=== PATIENT | female | born 1985 | race Caucasian/White ===

== ENCOUNTER 2024-01-11 19:58 | Emergency (ER) | payer OTHER, SELFPAY ==
--- NOTE | ~2024-01-11 | CT_ITS ---
EXAMINATION: CT ABDOMEN AND PELVIS WITH CONTRAST CLINICAL INFORMATION: Right lower quadrant pain COMPARISON: None available. TECHNIQUE: Multidetector volumetric images were obtained from the superior aspect of the liver through the pubic symphysis following administration 85 mL of Omnipaque 350 intravenous contrast. Sagittal and coronal reformatted images were obtained on the technologist's workstation. Oral contrast: No This CT examination was performed using dose optimization techniques as appropriate, variously including the following: *Automated exposure control *Adjustment of mA and/or kV according to patient size (this includes techniques or standardized protocols for targeted exams where dose is matched to indication/reason for exam; i.e. extremities or head) *Use of iterative reconstruction technique DLP: 469 mGy-cm FINDINGS: LUNG BASES: The visualized lung bases are unremarkable. LIVER, GALLBLADDER, AND BILIARY TREE: The liver is normal in size, shape, and attenuation. A couple small hypoattenuating hepatic foci are suggestive of cysts. No biliary ductal dilatation is present. Gallbladder is contracted and not adequately evaluated. PANCREAS: Unremarkable. SPLEEN: Unremarkable. ADRENAL GLANDS: Unremarkable. KIDNEYS AND URETERS: Bilateral nephrograms are symmetric. No hydronephrosis or obstructing calculus identified. BLADDER: Minimally distended and not adequately evaluated. GASTROINTESTINAL TRACT: No evidence of bowel obstruction. Limited evaluation for wall thickening in the descending and sigmoid colon due to luminal collapse, though there is no surrounding stranding to strongly suggest a colitis.. The appendix is unremarkable. No free fluid or free air is seen. ABDOMINAL WALL: No significant hernia is appreciated. LYMPH NODES: Normal. VASCULAR: Mildly prominent bilateral pelvic veins. PELVIC VISCERA: Unremarkable. OSSEOUS STRUCTURES: Unremarkable. CT/CT abdomen pelvis w IV con IMPRESSION: 1. No acute findings identified in the abdomen/pelvis. Normal appendix. 2. Mildly prominent bilateral pelvic veins, which can be seen with pelvic congestion syndrome in the proper clinical setting.
--- NOTE | ~2024-01-11 | US_ITS ---
EXAMINATION: US PELVIS CLINICAL INFORMATION: Lower abdominal pain, miscarriage 2 weeks ago COMPARISON: None available. TECHNIQUE: Ultrasound of the pelvis is performed using both transabdominal and transvaginal transducers along with Doppler. Transvaginal imaging is performed due to inadequate visualization transabdominally. FINDINGS: Uterus: The uterus is anteverted and measures 9.4 x 4.1 x 5.3 cm. No intrauterine gestational sac or abnormal vascularity identified. The trilaminar endometrial thickness is 7 mm. The uterus is smooth in contour and has normal myometrial echogenicity. Prominent parametrial vessels. Adnexa: Both ovaries are visualized. There is normal color flow to the adnexa. There is no ovarian torsion. There is no pelvic ascites or fluid collection. Right ovary measures 2.9 x 1.7 x 2.0 cm. Left ovary measures 2.6 x 1.7 x 1.9 cm. US/US pelvic and transvaginal IMPRESSION: No intrauterine gestational sac or solid adnexal masses.
[2024-01-11 20:02] VITALS: BP 115/79; PULSE 86; RESP 18; TEMP 36.2; O2SAT 98; BMI 26.8
--- NOTE | 2024-01-11 20:04 | ED.ABDPAIN ---
HPI - Abdominal Pain General Chief Complaint: Abdominal Pain Stated Complaint: miscarriage 2wks/having a lot of pressure Time Seen by Provider: 01/11/24 20:58 Source: patient and family Mode of arrival: ambulatory Limitations: no limitations History of Present Illness ED Provider: ED ISIDRO narrative: 38 female had miscarriage 2 weeks at 6 weeks managed at [facility] 48 hours ago quant was 28. She notes she has not had bleeding for a few days but now has cramping in lower abdomen and pain in RLQ starting 3 days ago. She also has had headaches since the miscarriage that just won't go away. She has mild nausea but no vomiting or diarrhea. Given the worsening pain over the past 3 days her OBGYN referred her to the ED for US and repeat quant. No bleeding in days. She has no prior surgeries. She has not had ovarian cyst in the past. MD elicited complaint: abdominal pain Pertinent past history: other (miscarriage 2 weeks - medically managed) Onset (ago): day(s) (3) Pain Consistency: constant Location: RLQ Severity: moderate Quality: aching Radiation: none Migration to: no migration Exacerbating factors: movement Relieving factors: nothing Associated symptoms: nausea and other (headache) Related Data Allergies Allergy/AdvReac Type Severity Reaction Status Date / Time No Known Allergies Allergy Verified 01/11/24 20:07 Review of Systems Review of Systems Constitutional : No Fever, No Chills, No Fatigue ENT/Mouth : No sore throat, No Rhinorrhea Eyes: No Eye Pain, No Swelling, No Redness Cardiovascular : No Chest Pain, No SOB, No Dyspnea on Exertion Respiratory : No Cough, No Sputum Gastrointestinal : pos Nausea, No Vomiting, No Diarrhea, pos abdominal Pain Genitourinary : No Dysuria, No Urinary Frequency, No Hematuria, Musculoskeletal : No joint pain, No Myalgias, No Joint Swelling Skin : No Skin Lesions, No rash Neuro : No Weakness, No Numbness, No Dizziness, positive Headache Psych : No Anxiety/Panic, No Depression Heme/Lymph: No Bruising, No Bleeding,No Lymphadenopathy Endocrine : No Polyuria, No Polydipsia All other systems reviewed and are negative [facility] Past Medical History Attestation statement: The following information was validated with the patient. Source: old records reviewed Medical History Miscarriage Social History Social History Smoked in Last 30 Days: No Substance Use Type: Marijuana Advance Directives: No Advance Directives Information Provided: No Do you have a plan to hurt others: No Plan Patient : No Physical Exam ED Vital Signs: Vital Signs - 24 hr 01/11/24 20:02 01/11/24 20:29 01/12/24 00:00 Temperature 97.2 F 97.3 F Pulse Rate 86 82 72 Respiratory Rate 18 17 16 Blood Pressure 115/79 123/69 123/76 Pulse Oximetry 98 99 99 Oxygen Delivery Method Room Air Room Air Room Air BMI result Body Mass Index 26.8 Appearance: Alert. Oriented X3. No acute distress. Eyes: Pupils equal, round and reactive to light. ENT: Pharynx normal. Neck: Normal inspection. Neck supple. CVS: Normal heart rate and rhythm. Pulses normal. Respiratory: No respiratory distress. Breath sounds normal. Abdomen: Soft and moderate RLQ ttp Skin: Skin warm and dry. Normal skin color. Normal skin turgor. Extremities: No lower extremity edema. No calf ttp Neuro: Oriented X 3. No motor deficit. No sensory deficit. Course Course Course Narrative: This is a Rapid Medical Examination (RME) performed by Vandana Ridley PA-C in triage. Full HPI, ROS, assessment and treatment plan per primary provider in the Main ED. 38 yo A1 female here for eval of right lower abdominal pressure x few days, worsening over last 7-8 hours. no radiation of pain. admits to assoc MAGANA and fatigue. Patient reports miscarriage 2 weeks ago at 6 wks gestation. OBGYN through [facility] has been trending HCG. last hcg was 28 2 days ago. has had no follow up ultrasound to confirm completion. report vaginal bleeding ceased 3 days ago. now having abd pain, headaches, and fatigue. denies dysuria, hematuria, vaginal discharge. + generally well appearing. abd slightly distended, ttp of lower abd w/o rebound or guarding. Plan: labs, hcg, pelvic/ trans vaginal US, UA Medical Decision Making Medical Decision Making MDM Narrative: 38 yo female miscarriage 2 weeks ago quant downtrending to 28 48 hours ago she has stopped bleeding as of 3 days now with RLQ pain headaches and nausea x 3 days so OBGYN sent her in at this time no further bleeding, no bleeding on US probe will obtain basic labs, UA, her BP is normal she is not toxic and has no neurologic findings neck ROM is supple does not appear irritated SAH or CV thrombus less likely will get US and if negative will also work up with CT scan for appendicitis - quant flat at 30. Differential Diagnosis Differential Diagnoses: The differential diagnosis associated with the presentation includes cyst, retained POC less likely, appendicitis Admission/Observation Consideration of admission/observation: Escalation of care including admission/observation considered patient wants to leave refuses to stay for CT scan read alert and oriented x 3 feels better work up negative feels better Lab Data MDM Lab Attestation statement: I reviewed the patient's lab results. 01/11/24 20:26 01/11/24 20:26 Labs: Lab Results 01/11/24 01/11/24 Range/Units 20:26 20:38 WBC 7.8 (4.8-10.8) X10*3/uL RBC 4.55 (4.20-5.50) X10*6/uL Hgb 13.8 (12.0-16.0) g/dl Hct 40.5 (37.0-47.0) % MCV 89.0 (80.0-98.0) fL MCH 30.3 (27.0-33.0) pg MCHC 34.1 (31.0-35.0) g/dl RDW 12.4 (11.0-16.0) % Plt Count 371 (160-400) X10*3/uL MPV 8.7 L (9.4-12.3) fL Immature Gran % (Auto) 0.3 (0.0-0.4) % Neut % (Auto) 54.8 (45-73) % Lymph % (Auto) 36.0 (20-40) % [place] % (Auto) 7.2 (2-11) % Eos % (Auto) 1.2 (0-4) % Baso % (Auto) 0.5 (0-2) % Lymph # (Auto) 2.8 (1.2-4.9) X10*3/uL [place] # (Auto) 0.6 (0.1-1.2) X10*3/uL Eos # (Auto) 0.1 (0.0-0.4) X10*3/uL Baso # (Auto) 0.0 (0.0-0.2) X10*3/uL Abs Immat Gran (auto) 0.02 (0.00-0.03) X10*3/uL Absolute Neuts (auto) 4.3 (2.0-8.3) x10*3/uL Absolute Nucleated RBC 0.000 (0.0-0.012) X10*3/uL Nucleated RBC % (auto) 0.0 (0.0-0.2) /100WBC Sodium 141 (135-145) mmol/L Potassium 3.6 (3.3-5.1) mmol/L Chloride 107 (96-108) mmol/L Carbon Dioxide 27 (22-29) mmol/L Anion Gap 11 L (12-20) BUN 11 (9-16) mg/dL Creatinine 0.82 (0.5-1.4) mg/dL Estim Creat Clear Calc 76.6 Estimated GFR > 60 Random Glucose 93 (60-115) mg/dL Calcium 8.7 (8.4-10.2) mg/dL Magnesium 2.2 (1.6-2.6) mg/dL Total Bilirubin 0.4 (0.0-1.0) mg/dL AST 15 (5-31) U/L ALT 14 (0-31) U/L Alkaline Phosphatase 82 (39-117) U/L Total Protein 6.6 (6.5-8.0) g/dL Albumin 4.2 (3.5-5.0) g/dL Lipase 34 (8-78) U/L Beta HCG, Quant 30 mIU/mL Urine Color Yellow Urine Appearance Clear Urine pH 6.5 (5.0-9.0) Ur Specific [place] 1.010 (1.005-1.025) Urine Protein Negative (Neg-Trace) mg/dL Urine Glucose (UA) Negative (Negative) mg/dL Urine Ketones Negative (Negative) mg/dL Urine Blood Negative (Negative) Urine Nitrite Negative (Negative) Ur Leukocyte Esterase Negative (Negative) Independent Interpretation I performed an independent interpretation of an: Ultrasound (normal ) and CT Scan (normal ) Radiology Impression Discussion of test interpretation with radiology: I have reviewed the radiologist's reading. Independent Historian Clinical information obtained from an independent historian. History obtained from or confirmed by: Spouse Medications Administered Discontinued Medications Generic Name Dose Route Start Last Admin Trade Name Jason PRN Reason Stop Dose Admin Lactated Ringer's 1,000 mls @ 999 mls/hr 01/11/24 21:10 01/11/24 22:47 Lr IV 01/11/24 22:10 Infused .Q1H1M ONE Infusion Iohexol 100 ml 01/11/24 22:11 01/11/24 22:12 Iohexol 350 Mg/Ml 100 Ml Infus..Btl IV 01/11/24 22:12 85 ml ONCE ONE Administration Ketorolac Tromethamine 15 mg 01/11/24 21:10 01/11/24 21:57 Ketorolac Tromethamine 15 Mg/Ml Vial IVPUSH 01/11/24 21:11 15 mg ONCE ONE Administration Ondansetron HCl 4 mg 01/11/24 21:10 01/11/24 21:58 Ondansetron Hcl 4 Mg/2 Ml Vial IVPUSH 01/11/24 21:11 4 mg ONCE ONE Administration Discharge Plan Discharge Clinical Impression: Abdominal pain Qualifiers: Abdominal location: right lower quadrant Qualified Code(s): R10.31 - Right lower quadrant pain Patient Disposition: Home, Self-Care Instructions: Abdominal Pain (ED) Additional Instructions: labs normal quant 30 urine normal follow up with your OBGYN tomorrow, return for any worsening symptoms or concerns FINDINGS: Uterus: The uterus is anteverted and measures 9.4 x 4.1 x 5.3 cm. No intrauterine gestational sac or abnormal vascularity identified. The trilaminar endometrial thickness is 7 mm. The uterus is smooth in contour and has normal myometrial echogenicity. Prominent parametrial vessels. Adnexa: Both ovaries are visualized. There is normal color flow to the adnexa. There is no ovarian torsion. There is no pelvic ascites or fluid collection. Right ovary measures 2.9 x 1.7 x 2.0 cm. Left ovary measures 2.6 x 1.7 x 1.9 cm. US/US pelvic and transvaginal IMPRESSION: No intrauterine gestational sac or solid adnexal masses. CT/CT abdomen pelvis w IV con IMPRESSION: 1. No acute findings identified in the abdomen/pelvis. Normal appendix. 2. Mildly prominent bilateral pelvic veins, which can be seen with pelvic congestion syndrome in the proper clinical setting. Print Language: Khmer
--- NOTE | 2024-01-11 20:08 | PC.NURSE ---
OB is [facility] on [facility] in [place]
[2024-01-11 20:29] VITALS: BP 123/69; PULSE 82; RESP 17; O2SAT 99
[2024-01-11 20:30] LABS: MANUAL DIFF FLAG NO
[2024-01-11 20:31] LABS: Basophils Percent Auto 0.5 % (0-2); Eosinophils Absolute Auto 0.1 X10*3/uL (0.0-0.4); Eosinophils Percent Auto 1.2 % (0-4); Hematocrit 40.5 % (37.0-47.0); Hemoglobin 13.8 g/dl (12.0-16.0); Imm Gran Abs Auto 0.02 X10*3/uL (0.00-0.03); Imm Gran Pct Auto 0.3 % (0.0-0.4); Lymphocytes Absolute Auto 2.8 X10*3/uL (1.2-4.9); Mean Corpuscular HGB Conc 34.1 g/dl (31.0-35.0); Mean Corpuscular Hemoglobin 30.3 pg (27.0-33.0); Mean Platelet Volume 8.7 fL (9.4-12.3); Monocytes Absolute Auto 0.6 X10*3/uL (0.1-1.2); Monocytes Percent Auto 7.2 % (2-11); Neutrophils Absolute Auto 4.3 x10*3/uL (2.0-8.3); Neutrophils Percent Auto 54.8 % (45-73); Platelet Count 371 X10*3/uL (160-400); Red Blood Count 4.55 X10*6/uL (4.20-5.50); Red Cell Distribution Width 12.4 % (11.0-16.0); White Blood Count 7.8 X10*3/uL (4.8-10.8)
[2024-01-11 20:46] LABS: Appearance Urine Clear; Color Urine Yellow; Glucose Urine UA Negative (Negative); Leukocyte Esterase Urine Negative (Negative); Nitrite Urine Negative (Negative); PH 6.5 (5.0-9.0); Urine Blood Negative (Negative); Urine Ketones Negative (Negative); Urine Protein Negative (Neg-Trace)
[2024-01-11 20:49] LABS: Alanine Aminotransferase 14 U/L (0-31); Albumin Level 4.2 g/dL (3.5-5.0); Alkaline Phosphatase 82 U/L (39-117); Anion Gap 11 (12-20); Aspartate Amino Transferase 15 U/L (5-31); Bilirubin Total 0.4 mg/dL (0.0-1.0); Blood Urea Nitrogen 11 mg/dL (9-16); Calcium 8.7 mg/dL (8.4-10.2); Carbon Dioxide 27 mmol/L (22-29); Chloride 107 mmol/L (96-108); Creatinine Clr Calc Pharmacy 76.6; Estimated Glomerular Filt Rate > 60; Glucose Random 93 mg/dL (60-115); Lipase 34 U/L (8-78); Magnesium 2.2 mg/dL (1.6-2.6); Potassium 3.6 mmol/L (3.3-5.1); Sodium 141 mmol/L (135-145); Total Protein 6.6 g/dL (6.5-8.0)
[2024-01-11 20:56] LABS: HCG Quantitative 30 mIU/mL
[2024-01-11] MEDS: Ketorolac Tromethamine 15 MG/ML VIAL IVPUSH (21:57)
[2024-01-11] MEDS: ondansetron HCL 4 MG/2 ML VIAL IVPUSH (21:58)
[2024-01-11] MEDS: Lactated Ringers 1,000 ML 999 ML IV (21:58)
[2024-01-11] MEDS: iohexoL 350 MG/ML 100 ML INFUS..BTL IV (22:12)
[2024-01-12] VITALS: BP 123/76; PULSE 72; RESP 16; TEMP 36.3; O2SAT 99
[2024-01-12 00:20] VITALS: BP 123/76; PULSE 72; RESP 16; TEMP 36.3; O2SAT 99
== END 2024-01-12 00:21 | disposition home or self-care (01) ==
PROVIDERS: Physician Assistant Medical; Emergency Provider Emergency Medicine; PCP Internal Medicine
DX: R10.31 Right lower quadrant pain (principal); R51.9 Headache, unspecified
CPT/HCPCS: 36415; 74177; 76830; 76856; 80053; 81003; 83690; 83735; 84702; 85025; 96361; 96374; 96375; 99284; 99285; J1885; J2405; J7120; Q9967